=== PATIENT | female | born 1995 | race Caucasian/White ===

== ENCOUNTER 2017-06-30 17:18 | Observation (INO) | payer SELFPAY ==
[~2017-06-30] VITALS: Ht 170.2 cm; Wt 126.0 kg
[2017-06-30] MEDS ORDERED: THE MEDICINE S200 M2 PO (17:50)
[2017-06-30] MEDS ORDERED: FISH OIL 1000MG1 CAP PO (17:50)
[2017-06-30] MEDS ORDERED: LEXAPRO 10MG10 MG PO (17:50)
[2017-06-30] MEDS ORDERED: GLUCOPHAGE500 MG/TAB PO (17:50)
[2017-06-30] MEDS ORDERED: MULTI VITAMINS1 TAB PO (17:51)
[2017-06-30] MEDS ORDERED: PRENATAL MVI (17:51)
[2017-06-30 18:13] LABS: BASO % 0.2 % (0.0-2.0); EOS % 0.2 % (0-4.0); GRAN # 9.5 (1.4-6.5); GRAN % 75.1 % (42.2-75.2); HEMATOCRIT 40.5 % (37.0-47.0); HEMOGLOBIN 13.7 g/dl (12.5-16.0); LYMPH # 2.3 (1.2-3.4); LYMPH % 18.5 % (20.0-51.0); MEAN CELL VOLUME 84 fl (80.0-100.0); MEAN CORPUSCULAR HEMOGLOBIN 28 pg (27.0-31.0); MEAN CORPUSCULAR HGB CONC 34 g/dl (33.0-37.0); MEAN PLATELET VOLUME 9.1 fl (7.4-10.4); MONO # 0.7 (0.1-0.6); MONO % 5.7 % (1.7-9.3); PLATELET COUNT 262 K/mm3 (130-400); RED BLOOD COUNT 4.85 M/mm3 (4.10-5.30); REDCELL DISTRIBUTION WIDTH-CV 12.6 % (11.5-14.5)
[2017-06-30 18:24] LABS: ALBUMIN 4.1 gm/dL (3.5-5.0); BILIRUBIN,TOTAL 0.5 mg/dL (0.0-1.0); C-REACTIVE PROTEIN 0.6 mg/dL (0.0-0.9); CALCIUM 8.9 mg/dL (8.4-10.2); CREATININE, serum 0.74 mg/dL (0.52-1.25); TOTAL PROTEIN 7.9 gm/dL (6.4-8.2)
[2017-06-30 20:19] VITALS: BP 144/73; PULSE 51; TEMP 97.5
[2017-06-30 20:29] VITALS: BP 144/73; PULSE 51; TEMP 97.5
[2017-07-01] VITALS (11 sets, daily range): BP systolic 104–136; BP diastolic 40–73; PULSE 52–78; TEMP 98.1–98.9
[2017-07-01 06:27] LABS: BASO % 0.2 % (0.0-2.0); EOS % 0.5 % (0-4.0); GRAN # 4.9 (1.4-6.5); GRAN % 56.2 % (42.2-75.2); LYMPH # 3.1 (1.2-3.4); LYMPH % 35.1 % (20.0-51.0); MEAN CELL VOLUME 84 fl (80.0-100.0); MEAN CORPUSCULAR HGB CONC 33 g/dl (33.0-37.0); MEAN PLATELET VOLUME 9.2 fl (7.4-10.4); MONO # 0.7 (0.1-0.6); MONO % 7.7 % (1.7-9.3); PLATELET COUNT 220 K/mm3 (130-400); RED BLOOD COUNT 4.26 M/mm3 (4.10-5.30)
[2017-07-01 06:37] LABS: HEMATOCRIT 35.9 % (37.0-47.0); HEMOGLOBIN 11.7 g/dl (12.5-16.0); MEAN CORPUSCULAR HEMOGLOBIN 27 pg (27.0-31.0)
[2017-07-01] MEDS ORDERED: NORCO 325 MG-7.1 TAB PO (17:35)
== END 2017-07-01 18:30 | disposition home or self-care (01) ==
LOC: COL.ER 17:18 → SURG 19:36
PROVIDERS: Nurse Practitioner; Surgery
DX: K80.10 Calculus of gallbladder with chronic cholecystitis without obstruction (principal); E66.9 Obesity, unspecified; Z68.41 Body mass index [BMI] 40.0-44.9, adult; E11.9 Type 2 diabetes mellitus without complications; E28.2 Polycystic ovarian syndrome; Z79.84 Long term (current) use of oral hypoglycemic drugs; Z79.899 Other long term (current) drug therapy
CPT/HCPCS: G0378; J0690; J1100; J1170; J1885; J2405; J2543; J2704; J3010; J7030; J7050; J7120; Q9967

== ENCOUNTER 2018-11-03 02:21 | Emergency (ER) | payer SELFPAY ==
[~2018-11-03] VITALS: Ht 170.2 cm; Wt 140.9 kg
[~2018-11-03 02:21] MED LIST: FISH OIL 1000MG1 CAP PO; GLUCOPHAGE500 MG/TAB PO; LEXAPRO 10MG10 MG PO; MULTI VITAMINS1 TAB PO; NORCO 325 MG-7.1 TAB PO; PRENATAL MVI; THE MEDICINE S200 M2 PO
[2018-11-03 02:39] VITALS: TEMP 98.8
[2018-11-03] MEDS ORDERED: WELLBUTRIN SR150 M1 PO (02:44)
[2018-11-03] MEDS ORDERED: ZOLOFT 100MG100 MG PO (02:45)
[2018-11-03] MEDS ORDERED: PREDNISONE20 MG PO (04:43)
[2018-11-03] MEDS ORDERED: PEPCID 20MG TAB20 MG PO (04:43)
[2018-11-03] MEDS ORDERED: CEFTIN500 MG PO (05:39)
[2018-11-03 06:02] VITALS: BP 106/65; PULSE 74
== END 2018-11-03 05:56 | disposition home or self-care (01) ==
LOC: COL.ER 02:21
DX: T37.8X5A Adverse effect of other specified systemic anti-infectives and antiparasitics, initial encounter (principal); N39.0 Urinary tract infection, site not specified; F41.9 Anxiety disorder, unspecified; F32.9 Major depressive disorder, single episode, unspecified; Z79.84 Long term (current) use of oral hypoglycemic drugs
CPT/HCPCS: J1200; J2930; J7040

== ENCOUNTER 2018-12-19 15:54 | Emergency (ER) | payer BC ==
[~2018-12-19] VITALS: Ht 170.2 cm; Wt 145.5 kg
[~2018-12-19 15:54] MED LIST changes: +CEFTIN500 MG PO; +PEPCID 20MG TAB20 MG PO; +PREDNISONE20 MG PO; +WELLBUTRIN SR150 M1 PO; +ZOLOFT 100MG100 MG PO
[2018-12-19 16:08] VITALS: BP 137/74; TEMP 98.8
[2018-12-19 17:40] LABS: BASO % 0.4 % (0.0-2.0); EOS # 0.1 (0.0-0.7); EOS % 0.8 % (0-4.0); GRAN # 5.1 (1.4-6.5); GRAN % 65.9 % (42.2-75.2); HEMATOCRIT 41.4 % (37.0-47.0); HEMOGLOBIN 13.4 g/dl (12.5-16.0); LYMPH # 1.9 (1.2-3.4); LYMPH % 23.9 % (20.0-51.0); MEAN CELL VOLUME 85 fl (80.0-100.0); MEAN CORPUSCULAR HEMOGLOBIN 27 pg (27.0-31.0); MEAN CORPUSCULAR HGB CONC 32 g/dl (33.0-37.0); MEAN PLATELET VOLUME 9.2 fl (7.4-10.4); MONO # 0.7 (0.1-0.6); MONO % 8.6 % (1.7-9.3); PLATELET COUNT 297 K/mm3 (130-400); REDCELL DISTRIBUTION WIDTH-CV 13.1 % (11.5-14.5)
[2018-12-19 17:41] LABS: COLLECTION METHOD CLEAN CATCH
[2018-12-19 17:50] LABS: PH 6 (5-8); SQUAMOUS EPITHELIAL None Seen /hpf; URINE APPEARANCE Clear; URINE BACTERIA Rare /hpf; URINE BILIRUBIN Negative (NEGATIVE); URINE BLOOD 2+ (NEGATIVE); URINE COLOR Yellow; URINE GLUCOSE Negative (NEGATIVE); URINE KETONE Negative (NEGATIVE); URINE LEUKOCYTE ESTERASE Negative (NEGATIVE); URINE NITRATE Negative (NEGATIVE); URINE PROTEIN(semi-quant) Negative (NEGATIVE); URINE RBC 0-2 /hpf; URINE UROBILINOGEN Negative (NEGATIVE)
[2018-12-19 17:51] LABS: ALANINE AMINOTRANSFERASE 62 U/L (9-52); ALKALINE PHOSPHATASE 56 U/L (50-136); ANION GAP 8 mmol/L (7-16); AST,SGOT 39 U/L (15-37); BILIRUBIN,TOTAL 0.2 mg/dL (0.0-1.0); BLOOD UREA NITROGEN 12 mg/dL (7-17); CALCIUM 9.1 mg/dL (8.4-10.2); CARBON DIOXIDE 28 mmol/L (22-30); CHLORIDE 101 mmol/L (98-107); CREATININE, serum 0.59 (0.52-1.25); GLUCOSE 93 mg/dL (74-106); POTASSIUM 4.2 mmol/L (3.4-5.0); SODIUM 136 mmol/L (137-145); TOTAL PROTEIN 6.9 gm/dL (6.4-8.2)
[2018-12-19 18:00] LABS: TRICYCLIC ANTIDEPRESS URINE NEGATIVE
[2018-12-19 18:03] LABS: ACETAMINOPHEN < 10 ug/mL (10-30); ALCOHOL(ethanol),MEDICAL < 10 mg/dL; SALICYLATE < 1.0 mg/dL
[2018-12-19 21:11] VITALS: PULSE 78
== END 2018-12-19 21:06 | disposition home or self-care (01) ==
LOC: COL.ER 15:54
PROVIDERS: Emergency Medicine
DX: F32.9 Major depressive disorder, single episode, unspecified (principal); R45.851 Suicidal ideations; E66.9 Obesity, unspecified; F17.290 Nicotine dependence, other tobacco product, uncomplicated; F41.9 Anxiety disorder, unspecified; Z90.89 Acquired absence of other organs; Z79.84 Long term (current) use of oral hypoglycemic drugs

== ENCOUNTER 2020-06-23 19:34 | Emergency (ER) | payer BC ==
[~2020-06-23] VITALS: Ht 170.2 cm; Wt 145.0 kg
[2020-06-23 19:49] VITALS: TEMP 97.7
[2020-06-23 21:41] VITALS: BP 121/73; PULSE 92
== END 2020-06-23 21:40 | disposition home or self-care (01) ==
LOC: COL.ER 19:34
DX: O21.9 Vomiting of pregnancy, unspecified (principal); O24.912 Unspecified diabetes mellitus in pregnancy, second trimester; O99.342 Other mental disorders complicating pregnancy, second trimester; F32.9 Major depressive disorder, single episode, unspecified; O99.512 Diseases of the respiratory system complicating pregnancy, second trimester; J45.909 Unspecified asthma, uncomplicated; O99.612 Diseases of the digestive system complicating pregnancy, second trimester; K21.9 Gastro-esophageal reflux disease without esophagitis; O99.332 Smoking (tobacco) complicating pregnancy, second trimester; F17.210 Nicotine dependence, cigarettes, uncomplicated; Z79.84 Long term (current) use of oral hypoglycemic drugs; Z79.899 Other long term (current) drug therapy; Z3A.20 20 weeks gestation of pregnancy
CPT/HCPCS: J2405; J7030